=== PATIENT | female | born 1955 | race Caucasian/White ===

== ENCOUNTER 2019-05-04 10:02 | Emergency (ER) | payer BC ==
[~2019-05-04] VITALS: Ht 165.1 cm; Wt 98.6 kg
[2019-05-04 12:09] LABS: BASOPHILS # (AUTO) 0.1 X10'3 (0-0.2); BASOPHILS % (AUTO) 0.8 % (0-1); EOSINOPHILS # (AUTO) 0.2 X10'3 (0-0.9); EOSINOPHILS % (AUTO) 2.5 % (0-6); HEMATOCRIT 38.1 % (35.0-45.0); HEMOGLOBIN 12.6 g/dl (12.0-16.0); LYMPHOCYTES # (AUTO) 2.1 X10'3 (1.1-4.8); LYMPHOCYTES % (AUTO) 30.8 % (21-51); MEAN CORPUSCULAR HEMOGLOBIN 29.2 PG (27.0-31.0); MEAN CORPUSCULAR HGB CONC 33.1 g/dL (33.0-36.5); MEAN CORPUSCULAR VOLUME 88.3 FL (78-98); MEAN PLATELET VOLUME 7.8 FL (7.4-10.4); MONOCYTES # (AUTO) 0.4 X10'3 (0-0.9); MONOCYTES % (AUTO) 6.1 % (2-12); NEUTROPHILS # (AUTO) 4.1 X10'3 (1.8-7.7); NEUTROPHILS % (AUTO) 59.8 % (42-75); PLATELET COUNT 346 X10'3 (140-440); RED BLOOD COUNT 4.31 X10'6 (4.20-5.60); RED CELL DISTRIBUTION WIDTH 14.2 % (11.5-14.5); WHITE BLOOD COUNT 6.9 X10'3 (4.5-11.0)
[2019-05-04] MEDS ORDERED: PANT20TA3 PO (12:19)
[2019-05-04] MEDS ORDERED: CITA20TA28 PO (12:19)
[2019-05-04] MEDS ORDERED: SUCR1ORA12 PO (12:19)
[2019-05-04 12:40] VITALS: BP 151/82
[2019-05-04] MEDS ORDERED: LIDO1ADH78 TOP (12:57)
== END 2019-05-04 13:15 | disposition home or self-care (01) ==
LOC: ER 10:03
DX: M25.541 Pain in joints of right hand (principal); M54.9 Dorsalgia, unspecified; Z88.6 Allergy status to analgesic agent; Z79.899 Other long term (current) drug therapy; W19.XXXA Unspecified fall, initial encounter; Y93.89 Activity, other specified; Y92.89 Other specified places as the place of occurrence of the external cause; Y99.8 Other external cause status
CPT/HCPCS: 36415; 70450; 71100; 73130; 74176; 85025; 99285

== ENCOUNTER 2020-07-05 09:29 | Emergency (ER) | payer BC ==
[~2020-07-05] VITALS: Ht 166.4 cm; Wt 94.8 kg
[~2020-07-05 09:29] MED LIST: CITA20TA28 PO; LIDO1ADH78 TOP; PANT20TA18 PO; SUCR1ORA12 PO
[2020-07-05 11:54] VITALS: BP 131/65
[2020-07-05] MEDS ORDERED: LIDOcaine 2% 10ml TOPICAL JELLY (Urojet) MM ONE (12:15)
[2020-07-05] MEDS ORDERED: MAGN296S68 PO (12:36)
== END 2020-07-05 14:27 | disposition home or self-care (01) ==
LOC: ER 09:30
DX: K56.41 Fecal impaction (principal); R10.30 Lower abdominal pain, unspecified; R11.0 Nausea; Z98.890 Other specified postprocedural states; Z88.6 Allergy status to analgesic agent; Z79.899 Other long term (current) drug therapy
CPT/HCPCS: 99284